=== PATIENT | male | born 1955 | race Caucasian/White ===

== ENCOUNTER 2022-09-13 12:25 | Emergency (ER) | payer BC, MEDICARE, OTHER ==
--- NOTE | 2022-09-13 12:39 | ED Physician Documentation ---
PD HPI HEENT - Stated complaint Stated Complaint: OBJECT STUCK IN THROAT - Chief complaint Chief Complaint: Heent - History obtained from History obtained from: Patient - History of Present Illness Timing - onset: How many hours ago (1) Timing - duration: Hours (1) Timing - details: Abrupt onset, Still present Location: Throat (The patient states he was eating an apple and had a large bite that he thought he had chewed but swallowed and felt stuck in his upper esophagus. He states he is having a normal breathing without wheezing or stridor. He feels slightly hoarse voice. He is spitting up saliva often.) Worsens: Swalllowing (attempted swallowing hurts lower throat area.) Associated symptoms: No: Fever, Congestion Similar symptoms before: Has not had sx before Recently seen: Not recently seen Review of Systems Constitutional: denies: Fever, Chills Nose: denies: Rhinorrhea / runny nose, Congestion Throat: denies: Sore throat Respiratory: denies: Cough PD PAST MEDICAL HISTORY - Past Medical History Cardiovascular: None Neuro: Dementia Endocrine/Autoimmune: None - Present Medications Home Medications: Ambulatory Orders Medication Instructions Recorded Confirmed Atorvastatin Calcium 40 mg PO DAILY 09/13/22 09/13/22 Donepezil [Aricept] 10 mg PO DAILY 09/13/22 09/13/22 Tamsulosin [Flomax] 0.4 mg PO DAILY 09/13/22 09/13/22 - Allergies Allergies/Adverse Reactions: Allergies Allergy/AdvReac Type Severity Reaction Status Date / Time No Known Drug Allergies Allergy Verified 09/13/22 12:31 PD ED PE NORMAL - Vitals Vital signs reviewed: Yes - General General: Alert and oriented X 3, Well developed/nourished, Other (He appears uncomfortable. He is sitting up but is able to talk in sentences. His breathing is unlabored. I do not hear any wheezing or stridor.) - HEENT HEENT: Pharynx benign (Normal view of the throat does not show any obvious foreign body.) - Neck Neck: Supple, no meningeal sign, No adenopathy, No bruit - Cardiac Cardiac: RRR, No murmur - Respiratory Respiratory: Clear bilaterally - Derm Derm: Normal color, Warm and dry Results - Vitals Vitals: Vital Signs - 24 hr 09/13/22 09/13/22 09/13/22 12:31 13:03 13:28 Temperature 36.9 C Heart Rate 64 62 Respiratory 20 17 17 Rate Blood Pressure 192/83 H 188/81 H O2 Saturation 100 100 09/13/22 09/13/22 09/13/22 13:47 14:16 14:41 Temperature 36.5 C Heart Rate 55 L 75 Respiratory 17 16 16 Rate Blood Pressure 165/74 H 125/67 O2 Saturation 100 94 Oxygen O2 Source Room air - Labs Labs: Laboratory Tests 09/13/22 09/13/22 12:55 12:55 WBC 5.7 RBC 4.88 Hgb 14.7 Hct 43.8 MCV 89.8 MCH 30.1 MCHC 33.6 RDW 11.7 L Plt Count 434 MPV 8.6 Neut # (Auto) 3.6 Lymph # (Auto) 1.3 L [place] # (Auto) 0.6 Eos # (Auto) 0.1 Baso # (Auto) 0.1 Absolute Nucleated RBC 0.00 Nucleated RBC % 0.0 Sodium 139 Potassium 4.1 Chloride 102 Carbon Dioxide 27 Anion Gap 10.0 BUN 21 H Creatinine 0.8 Estimated GFR (MDRD) 96 Glucose 115 H Calcium 9.7 Total Bilirubin 0.9 AST 25 ALT 26 Alkaline Phosphatase 76 Total Protein 7.5 Albumin 4.3 Globulin 3.2 Albumin/Globulin Ratio 1.3 Lipase 38 PD Medical Decision Making - ED course Complexity details: re-evaluated patient (he is able to drink sips of water with just discomfort but no emesis. He then drank a glass of water and is just having some soreness with swallowing, but obviously the impaction is cleared. Presume some soreness of esophageal muscle. Was eating apple, so should not have puncture/abrasion/etc. ), considered differential (The patient was eating an apple and has a chunk of apple poorly chewed stuck in the upper esophagus. His breathing and voice are good so he get as sense of it in the esophagus below the epiglottic bifurcation. We can try pain medicine and glucagon. However if rem ains stuck, then surgical eval.), d/w patient Departure - Departure Disposition: 01 Home, Self Care Clinical Impression: Food impaction of esophagus Condition: Stable Instructions: ED Foreign Body Esophageal Rslv Follow-Up: Emanuel Ring MD [Primary Care Provider] - Comments: It does seem like your food blockage has cleared as you are able to swallow liquids now. Your esophagus will be sore because of the pressure and irritation from the food. I would anticipate the soreness with swallowing will improve through today in the next 1 or 2 days. Recheck if not back to normal without any pain on swallowing within a couple of days. Return if unable to swallow. Tylenol ibuprofen if needed for pains. Soft food and liquid only for this afternoon and progress as tolerated. Discharge Date/Time: 09/13/22 14:45
[2022-09-13 13:00] LABS: BASOPHILS # (AUTO) 0.1 10^3/uL (0.0-0.1); BASOPHILS % (AUTO) 0.9 %; EOSINOPHILS # (AUTO) 0.1 10^3/uL (0.0-0.7); EOSINOPHILS % (AUTO) 2.3 %; HCT - HEMATOCRIT 43.8 % (42.0-52.0); HGB - HEMOGLOBIN 14.7 g/dL (14.0-18.0); LYMPHOCYTES # (AUTO) 1.3 10^3/uL (1.5-3.5); LYMPHOCYTES % (AUTO) 22.3 %; MEAN CORPUSCULAR HEMOGLOBIN 30.1 pg (27.0-31.0); MEAN CORPUSCULAR HGB CONC 33.6 g/dL (32.0-36.0); MEAN CORPUSCULAR VOLUME 89.8 fL (80.0-94.0); MEAN PLATELET VOLUME 8.6 fL (7.4-11.4); MONOCYTES # (AUTO) 0.6 10^3/uL (0.0-1.0); MONOCYTES % (AUTO) 10.6 %; NEUTROPHILS # (AUTO) 3.6 10^3/uL (1.5-6.6); NEUTROPHILS % (AUTO) 63.5 %; PLT - PLATELET COUNT 434 10^3/uL (130-450); RED BLOOD COUNT 4.88 10^6/uL (4.70-6.10); RED CELL DISTRIBUTION WIDTH 11.7 % (12.0-15.0); WHITE BLOOD COUNT 5.7 x10^3/uL (4.8-10.8)
[2022-09-13] MEDS ORDERED: MORPHINE 2 MG/ML CARPUJECT IVP STA (13:08)
[2022-09-13] MEDS ORDERED: GLUCAGON 1 MG/ML VIAL IVP STA (13:08)
[2022-09-13] MEDS ORDERED: SODIUM CHLORIDE 0.9% 1,000 ML IV STA (13:10)
[2022-09-13 13:13] LABS: ALBUMIN 4.3 g/dL (3.2-5.5); ALBUMIN/GLOBULIN RATIO 1.3 (1.0-2.2); BILIRUBIN,TOTAL 0.9 mg/dL (0.2-1.0); CALCIUM 9.7 mg/dL (8.5-10.3); CREATININE 0.8 mg/dL (0.6-1.2); POTASSIUM 4.1 mmol/L (3.5-5.0); TOTAL PROTEIN 7.5 g/dL (6.7-8.2)
[2022-09-13 14:18] VITALS: BP 125/67
[2022-09-13] MEDS ORDERED: KETOROLAC 15 MG/ML VIAL IVP STA (14:22)
== END 2022-09-13 14:45 | disposition home or self-care (01) ==
LOC: ED 12:25
DX: T18.128A Food in esophagus causing other injury, initial encounter (principal); X58.XXXA Exposure to other specified factors, initial encounter
CPT/HCPCS: 36415; 80053; 83690; 85025; 96374; 96375; 99284